=== PATIENT | female | born 1965 | race Caucasian/White ===

== ENCOUNTER 2016-12-05 12:45 | Day surgery (SDC) | payer BC, OTHER ==
[~2016-12-05] VITALS: Ht 157.5 cm; Wt 70.8 kg
[~2016-12-05 12:45] MED LIST: [UNRECOGNIZED DRUG - CODE]
[2016-12-05] MEDS ORDERED: VITAMIN D (14:49)
[2016-12-05] MEDS ORDERED: NAPROXEN (14:49)
[2016-12-05 14:50] VITALS: Ht 157.5 cm; Wt 70.8 kg
[2016-12-05 17:19] VITALS: BP 108/54; PULSE 52; RESP 18
[2016-12-05] MEDS ORDERED: MIDAZOLAM 1 MG/ML 2 ML INJ ONE (17:57)
[2016-12-05] MEDS ORDERED: PROPOFOL 40 ML ONE (17:58)
[2016-12-05 18:57] VITALS: BP 133/73; PULSE 62; RESP 14
--- NOTE | 2016-12-05 19:43 | OPR ---
Date/Time of Note Date/Time of Note DATE: 12/05/16 TIME: 19:40 Operative Report Preoperative Diagnosis * Dyspepsia * Reflux symptoms Postoperative Diagnosis Impression: * 6 mm esophageal ulcer. Rule out Valentin's esophagus. Biopsies obtained * Moderate distal esophagitis * Small hiatal hernia * Nodular gastritis. Rule out H. pylori infection. Biopsies obtained Plan: * PPI therapy * Review pathology * Follow-up EGD in 8 weeks to assess healing . Operation/Procedure Performed * EGD with biopsies Surgeon: EVETTE MACKEY MD Anesthesia: MAC Estimated Blood Loss: none Specimens * Gastric body and antrum * Esophageal ulcer Grafts/Implants * None Complications: None EVETTE MACKEY MD Dec 05, 2016 19:43
--- NOTE | 2016-12-05 20:10 | OPR ---
Date/Time of Note Date/Time of Note DATE: 12/05/16 TIME: 20:07 Operative Report Preoperative Diagnosis * Colorectal cancer screening Postoperative Diagnosis Impression: * 3 mm sessile rectal polyp. Ablated * Moderate-sized internal hemorrhoids. Plan: * Follow-up as previously scheduled * Review pathology * Annual Hemoccult stool testing * Surveillance colonoscopy in 5 years . . Operation/Procedure Performed * Colonoscopy with polyp ablation Surgeon: EVETTE MACKEY MD Anesthesia: MAC Estimated Blood Loss: none Specimens * Rectal polyp Grafts/Implants * None Complications: None EVETTE MACKEY MD Dec 05, 2016 20:09
== END 2016-12-05 21:14 | disposition home or self-care (01) ==
LOC: GIL 12:45
PROVIDERS: ATTEND Internal Medicine Gastroenterology
DX: K29.50 Unspecified chronic gastritis without bleeding (principal); Z12.11 Encounter for screening for malignant neoplasm of colon; K22.70 Barrett's esophagus without dysplasia; K62.1 Rectal polyp; K44.9 Diaphragmatic hernia without obstruction or gangrene; K22.10 Ulcer of esophagus without bleeding; K64.8 Other hemorrhoids
CPT/HCPCS: 43239; 45380; 88305; 88312; 88313; J2250

== ENCOUNTER 2017-04-03 12:40 | Day surgery (SDC) | END 2017-04-03 21:33 | disposition home or self-care (01) | DX: K22.10 Ulcer of esophagus without bleeding (principal); Q39.4 Esophageal web; K29.70 Gastritis, unspecified, without bleeding; K44.9 Diaphragmatic hernia without obstruction or gangrene | CPT/HCPCS: 43239; 88305; 88312; J3010 ==